=== PATIENT | male | born 1995 | race Caucasian/White ===

== ENCOUNTER 2021-08-04 01:04 | Emergency (ER) | payer SELFPAY ==
[~2021-08-04] VITALS: Ht 175.3 cm; Wt 75.0 kg
[2021-08-04] MEDS ORDERED: NALO4SPR BOTHNSTRLS (03:13)
[2021-08-04 03:30] VITALS: BP 126/77
[2021-08-04 03:36] LABS: HEMATOCRIT. 44.5 % (42.0-52.0); MEAN CORPUSCULAR HEMOGLOBIN 29.3 pg (28.0-32.0); MEAN CORPUSCULAR VOLUME 86.7 fL (80.0-94.0); MEAN PLATELET VOLUME 8.4 fl (7.4-10.4); PLATELET 258 x1000/uL (130-400); RED BLOOD CELL COUNT 5.13 mill/uL (4.7-6.1)
[2021-08-04 03:44] LABS: CHLORIDE 107 mEq/L (98-107)
[2021-08-04 03:51] LABS: ETHANOL BLOOD < 10 mg/dL
[2021-08-04 08:10] LABS: PLATELET ESTIMATE NORMAL
== END 2021-08-04 03:47 | disposition home or self-care (01) ==
LOC: ER 01:04
DX: R41.82 Altered mental status, unspecified (principal)
CPT/HCPCS: 36415; 80053; 80307; 80320; 80329; 85025; 99283; G0480